=== PATIENT | male | born 1965 | race Caucasian/White ===

== ENCOUNTER 2018-01-21 11:21 | Day surgery (SDC) | payer BC ==
[2018-01-21] MEDS ORDERED: PROPOFOL 40 ML (14:00)
[2018-01-21] MEDS ORDERED: PROPOFOL 20 ML (14:46)
== END 2018-01-21 16:48 | disposition home or self-care (01) ==
LOC: GIL 11:21
DX: R19.4 Change in bowel habit (principal); K29.30 Chronic superficial gastritis without bleeding; K21.9 Gastro-esophageal reflux disease without esophagitis; K31.7 Polyp of stomach and duodenum; K64.8 Other hemorrhoids; I10 Essential (primary) hypertension; E78.5 Hyperlipidemia, unspecified
CPT/HCPCS: 43239; 88305; 88312

== ENCOUNTER 2018-04-19 06:05 | Day surgery (SDC) | payer BC ==
[~2018-04-19 06:05] MED LIST: AMPICILLIN/SULB 3 GM/NS (PMX) 100 ML IVPB; SOD CHLORIDE 0.9% 1,000 ML IV
[2018-04-19] MEDS ORDERED: PROPOFOL 20 ML ×2 (07:21→08:16)
[2018-04-19] MEDS ORDERED: PHENYLephrine (100 MCG/ML) 5ML SYG (07:22)
[2018-04-19] MEDS ORDERED: LIDOCAINE 2% (SDV) 5 ML INJ (07:22)
== END 2018-04-19 12:00 | disposition home or self-care (01) ==
LOC: GIL 06:05
DX: C16.9 Malignant neoplasm of stomach, unspecified (principal)
CPT/HCPCS: 43239; 88305; 88312

== ENCOUNTER 2018-04-22 08:33 | Inpatient (IN) | payer BC ==
[~2018-04-22 08:33] MED LIST changes: -AMPICILLIN/SULB 3 GM/NS (PMX) 100 ML IVPB; +CEFAZOLIN 1 GM INJ; +SUCCINYLCHOLINE CHLORIDE 100 MG/5 ML SYG IV
[2018-04-22 09:25] LABS: ADD MAN DIFF? NO
[2018-04-22 09:25] LABS: WHITE BLOOD COUNT 4.6 10^3/ul (4.8-10.8)
[2018-04-22 09:26] LABS: BASOPHILS % 0.4 % (0.0-2.0); EOSINOPHILS % 0.9 % (0.0-7.0); HEMOGLOBIN 8.2 g/dl (14.0-18.0); LYMPHOCYTES % 20.6 % (15.0-51.0); MEAN CORPUSCULAR HEMOGLOBIN 28.4 pg (29.0-33.0); MEAN CORPUSCULAR HGB CONC 32.8 g/dl (32.0-37.0); MEAN CORPUSCULAR VOLUME 86.5 fl (82.0-101.0); MEAN PLATELET VOLUME 11.7 fl (7.4-10.4); MONOCYTE # 0.3 10^3/ul (0.3-0.9); MONOCYTES % 6.7 % (0.0-11.0); NEUTROPHIL # 3.3 10^3/ul (1.6-7.5); NEUTROPHILS % 71.2 % (39.0-77.0); PLATELET COUNT 189 10^3/UL (140-415); RED BLOOD COUNT 2.89 10^6/ul (4.70-6.10); RED CELL DISTRIBUTION WIDTH 14.6 % (11.5-14.5)
[2018-04-22 09:45] LABS: INR 0.94; PROTIME 12.7 Sec (11.9-14.9)
[2018-04-22 09:46] LABS: PARTIAL THROMBOPLASTIN TIME 30.7 Sec (25.0-35.0)
[2018-04-22 09:47] LABS: HOLD TRANSMISSIONS 1
[2018-04-22 09:57] LABS: ALANINE AMINOTRANSFERASE 12 IU/L (13-69); ALBUMIN 2.8 g/dl (3.3-4.9); ALBUMIN/GLOBULIN RATIO 1.07; ALKALINE PHOSPHATASE 65 IU/L (42-121); ANION GAP 9 (8-16); ASPARTATE AMINO TRANSFERASE 19 IU/L (15-46); BILIRUBIN,INDIRECT 0.3 mg/dl (0-1.1); BILIRUBIN,TOTAL 0.3 mg/dl (0.2-1.3); BLOOD UREA NITROGEN 23 mg/dl (7-20); CALCIUM 8.4 mg/dl (8.4-10.2); CARBON DIOXIDE 26 mmol/L (21-31); CHLORIDE 109 mmol/L (97-110); CREATININE 2.78 mg/dl (0.61-1.24); GLUCOSE 97 mg/dl (70-220); POTASSIUM 3.8 mmol/L (3.5-5.1); SODIUM 140 mmol/L (135-144); TOTAL PROTEIN 5.4 g/dl (6.1-8.1)
[2018-04-22] MEDS ORDERED: MIDAZOLAM 1 MG/ML 2 ML INJ (11:25)
[2018-04-22] MEDS ORDERED: NEOSTIGMINE 3 MG/3 ML SYRINGE (11:25)
[2018-04-22] MEDS ORDERED: ROCURONIUM 50 MG INJ (11:25)
[2018-04-22] MEDS ORDERED: LIDOCAINE 2% (SDV) 5 ML INJ (11:25)
[2018-04-22] MEDS ORDERED: GLYCOPYRROLATE 0.4 MG INJ (11:25)
[2018-04-22] MEDS ORDERED: PROPOFOL 20 ML (11:25)
[2018-04-22] MEDS ORDERED: DEXAMETHASONE 4 MG/ML 1 ML INJ ×2 (11:26→11:28)
[2018-04-22] MEDS ORDERED: ONDANSETRON 4 MG INJ (11:26)
[2018-04-22] MEDS ORDERED: FENTAnyl 50 MCG/ML VIAL ×2 (11:26→15:24)
[2018-04-22 12:52] LABS: IMMEDIATE SPIN CROSSMATCH 1 2
[2018-04-22] MEDS ORDERED: FUROSEMIDE 20 MG INJ (14:05)
[2018-04-22] MEDS ORDERED: SUGAMMADEX SODIUM 200 MG/2 ML VIAL IV (15:01)
[2018-04-22] MEDS ORDERED: DIPHENHYDRAMINE 50 MG INJ (15:17)
[2018-04-22] MEDS ORDERED: HYDROmorphONE 0.2 MG/ML PCA (15:25)
[2018-04-22] MEDS ORDERED: HYDROmorphONE 1 MG/5 ML IV SYRINGE IV ×3 (15:25→15:30)
[2018-04-22] MEDS ORDERED: ALBUTEROL 0.083% (NEB) 2.5 MG/3 ML AMP HHN (15:30)
[2018-04-22] MEDS ORDERED: FENTAnyl 50 MCG/ML VIAL IV ×2 (15:30)
[2018-04-22] MEDS ORDERED: LABETALOL HCL 20MG INJ IV (15:30)
[2018-04-22] MEDS ORDERED: MEPERIDINE 25 MG INJ IV (15:30)
[2018-04-22] MEDS ORDERED: ONDANSETRON 4 MG INJ IV (15:30)
[2018-04-22] MEDS ORDERED: KETOROLAC 15 MG INJ IV (15:30)
[2018-04-22] MEDS ORDERED: MIDAZOLAM 1 MG/ML 2 ML INJ IV (15:30)
[2018-04-22] MEDS ORDERED: METOCLOPRAMIDE 10 MG INJ IV (15:30)
[2018-04-22] MEDS ORDERED: KETOROLAC 30 MG INJ IV (15:30)
[2018-04-22] MEDS: HYDROmorphONE 1 MG/5 ML IV SYRINGE IV (15:49)
[2018-04-22] MEDS: DIPHENHYDRAMINE 50 MG INJ IV (15:50)
[2018-04-22] MEDS: FENTAnyl 50 MCG/ML VIAL IV ×2 (15:50→16:04)
[2018-04-22] MEDS: HYDROmorphONE 0.2 MG/ML PCA IV (15:51)
[2018-04-22 15:59] LABS: HEMATOCRIT 31.3 % (42.0-52.0); HEMOGLOBIN 9.9 g/dl (14.0-18.0)
[2018-04-22] MEDS: D5W-0.45 NACL + KCL 20 MEQ 1,000 ML IV ×3 (17:06→23:27)
[2018-04-23] MEDS: PANTOPRAZOLE 40 MG INJ IV (05:41)
[2018-04-23] MEDS: D5W-0.45 NACL + KCL 20 MEQ 1,000 ML IV ×3 (05:41→19:37)
[2018-04-23] MEDS: HYDROmorphONE 0.2 MG/ML PCA IV (07:35)
[2018-04-23 10:48] LABS: ADD MAN DIFF? NO
[2018-04-23 10:53] LABS: WHITE BLOOD COUNT 11.5 10^3/ul (4.8-10.8)
[2018-04-23 10:53] LABS: BASOPHILS % 0.1 % (0.0-2.0); HEMATOCRIT 30.5 % (42.0-52.0); HEMOGLOBIN 9.8 g/dl (14.0-18.0); LYMPHOCYTES # 0.7 10^3/ul (0.8-2.9); LYMPHOCYTES % 6.2 % (15.0-51.0); MEAN CORPUSCULAR HEMOGLOBIN 28.4 pg (29.0-33.0); MEAN CORPUSCULAR HGB CONC 32.1 g/dl (32.0-37.0); MEAN CORPUSCULAR VOLUME 88.4 fl (82.0-101.0); MEAN PLATELET VOLUME 11.2 fl (7.4-10.4); MONOCYTE # 0.8 10^3/ul (0.3-0.9); MONOCYTES % 7.2 % (0.0-11.0); NEUTROPHIL # 9.9 10^3/ul (1.6-7.5); NEUTROPHILS % 86.1 % (39.0-77.0); PLATELET COUNT 239 10^3/UL (140-415); RED BLOOD COUNT 3.45 10^6/ul (4.70-6.10); RED CELL DISTRIBUTION WIDTH 14.8 % (11.5-14.5)
[2018-04-23 11:07] LABS: ANION GAP 8 (8-16); BLOOD UREA NITROGEN 25 mg/dl (7-20); CALCIUM 8.1 mg/dl (8.4-10.2); CARBON DIOXIDE 23 mmol/L (21-31); CHLORIDE 113 mmol/L (97-110); GLUCOSE 143 mg/dl (70-220); POTASSIUM 4.6 mmol/L (3.5-5.1); SODIUM 139 mmol/L (135-144)
[2018-04-23 14:18] LABS: INR 1.06; PROTIME 13.9 Sec (11.9-14.9); PT RATIO 1.1
[2018-04-23 14:19] LABS: PARTIAL THROMBOPLASTIN TIME 35.6 Sec (25.0-35.0)
[2018-04-23] MEDS: CLONIDINE 0.2 MG/24 HR PATCH TRANSDERM (14:40)
[2018-04-23] MEDS: hydrALAzine 20 MG INJ IV ×2 (14:41→19:41)
[2018-04-23 22:45] LABS: ADD MAN DIFF? NO
[2018-04-23 22:47] LABS: BASOPHILS % 0.1 % (0.0-2.0); HEMATOCRIT 30.6 % (42.0-52.0); HEMOGLOBIN 10.1 g/dl (14.0-18.0); IMMATURE GRANS #M 0.13 10^3/ul; IMMATURE GRANS % (M) 0.9 %; LYMPHOCYTES # 0.8 10^3/ul (0.8-2.9); LYMPHOCYTES % 5.7 % (15.0-51.0); MEAN CORPUSCULAR HEMOGLOBIN 28.9 pg (29.0-33.0); MEAN CORPUSCULAR VOLUME 87.4 fl (82.0-101.0); MEAN PLATELET VOLUME 11.4 fl (7.4-10.4); MONOCYTES % 6.6 % (0.0-11.0); NEUTROPHIL # 12.9 10^3/ul (1.6-7.5); NEUTROPHILS % 86.7 % (39.0-77.0); PLATELET COUNT 278 10^3/UL (140-415)
[2018-04-23 22:47] LABS: WHITE BLOOD COUNT 14.8 10^3/ul (4.8-10.8)
[2018-04-23] MEDS: LABETALOL HCL 20MG INJ IV (22:55)
[2018-04-23 23:07] LABS: CREATINE KINASE 377 IU/L (23-200)
[2018-04-23 23:08] LABS: LACTIC ACID 1.2 mmol/L (0.5-2.0); MAGNESIUM 2.2 mg/dl (1.7-2.5)
[2018-04-23 23:09] LABS: ALANINE AMINOTRANSFERASE 13 IU/L (13-69); ALBUMIN 2.8 g/dl (3.3-4.9); ALBUMIN/GLOBULIN RATIO 1.03; ALKALINE PHOSPHATASE 63 IU/L (42-121); ANION GAP 11 (8-16); ASPARTATE AMINO TRANSFERASE 28 IU/L (15-46); BILIRUBIN,INDIRECT 0.3 mg/dl (0-1.1); BILIRUBIN,TOTAL 0.3 mg/dl (0.2-1.3); BLOOD UREA NITROGEN 28 mg/dl (7-20); CALCIUM 8.4 mg/dl (8.4-10.2); CARBON DIOXIDE 19 mmol/L (21-31); CHLORIDE 113 mmol/L (97-110); CREATININE 3.62 mg/dl (0.61-1.24); GLUCOSE 160 mg/dl (70-220); POTASSIUM 4.3 mmol/L (3.5-5.1); SODIUM 139 mmol/L (135-144); TOTAL PROTEIN 5.5 g/dl (6.1-8.1)
[2018-04-23 23:20] LABS: CK INDEX 0.7; CK-MB 2.67 ng/ml (0.0-2.4); TROPONIN-I < 0.010 ng/ml (0.000-0.120)
[2018-04-23] MEDS: METOPROLOL 5 MG INJ IV (23:21)
[2018-04-24] MEDS: SOD CHLORIDE 0.9% 1,000 ML IV
[2018-04-24] MEDS: AMPICILLIN/SULB 3 GM/NS (PMX) 100 ML IVPB (00:55)
[2018-04-24] MEDS: D5W-0.45 NACL + KCL 20 MEQ 1,000 ML IV ×3 (06:02→23:55)
[2018-04-24] MEDS: PANTOPRAZOLE 40 MG INJ IV (06:02)
[2018-04-24 06:03] LABS: WHITE BLOOD COUNT 11.3 10^3/ul (4.8-10.8)
[2018-04-24 06:03] LABS: ADD MAN DIFF? NO; BASOPHILS % 0.3 % (0.0-2.0); EOSINOPHILS % 0.1 % (0.0-7.0); HEMATOCRIT 27.3 % (42.0-52.0); HEMOGLOBIN 8.7 g/dl (14.0-18.0); IMMATURE GRANS #M 0.06 10^3/ul; IMMATURE GRANS % (M) 0.5 %; LYMPHOCYTES # 0.7 10^3/ul (0.8-2.9); LYMPHOCYTES % 6.5 % (15.0-51.0); MEAN CORPUSCULAR HEMOGLOBIN 27.9 pg (29.0-33.0); MEAN CORPUSCULAR HGB CONC 31.9 g/dl (32.0-37.0); MEAN CORPUSCULAR VOLUME 87.5 fl (82.0-101.0); MEAN PLATELET VOLUME 11.6 fl (7.4-10.4); MONOCYTE # 0.8 10^3/ul (0.3-0.9); MONOCYTES % 7.4 % (0.0-11.0); NEUTROPHIL # 9.7 10^3/ul (1.6-7.5); NEUTROPHILS % 85.2 % (39.0-77.0); PLATELET COUNT 208 10^3/UL (140-415); RED BLOOD COUNT 3.12 10^6/ul (4.70-6.10); RED CELL DISTRIBUTION WIDTH 15.2 % (11.5-14.5)
[2018-04-24 06:28] LABS: CREATINE KINASE 289 IU/L (23-200)
[2018-04-24 06:30] LABS: LACTIC ACID 0.9 mmol/L (0.5-2.0)
[2018-04-24 06:32] LABS: INR 1.13; PROTIME 14.7 Sec (11.9-14.9); PT RATIO 1.1
[2018-04-24 06:33] LABS: PARTIAL THROMBOPLASTIN TIME 34.9 Sec (25.0-35.0)
[2018-04-24 06:34] LABS: ANION GAP 10 (8-16); BLOOD UREA NITROGEN 29 mg/dl (7-20); CARBON DIOXIDE 20 mmol/L (21-31); CHLORIDE 115 mmol/L (97-110); CREATININE 3.31 mg/dl (0.61-1.24); GLUCOSE 126 mg/dl (70-220); POTASSIUM 4.9 mmol/L (3.5-5.1); SODIUM 140 mmol/L (135-144)
[2018-04-24 06:35] LABS: CK INDEX 0.9; CK-MB 2.59 ng/ml (0.0-2.4); TROPONIN-I 0.021 ng/ml (0.000-0.120)
[2018-04-24] MEDS ORDERED: ALBUTEROL 0.083% (NEB) 2.5 MG/3 ML AMP HHN (11:30)
[2018-04-24 13:26] LABS: HAAIG REFLEX REFLEX FILED
[2018-04-24 13:32] LABS: PHOSPHORUS 5.1 mg/dl (2.5-4.9)
[2018-04-24 14:05] LABS: HEPATITIS B SURFACE ANTIGEN NEGATIVE (NEGATIVE)
[2018-04-24 14:22] LABS: HEPATITIS B CORE ANTIBODY NEGATIVE (NEGATIVE); HEPATITIS C VIRAL ANTIBODY NEGATIVE (NEGATIVE); HIV 1&2 ANTIBODY NEGATIVE (NEGATIVE)
[2018-04-24 15:48] LABS: OSMOLALITY,URINE 408 mOsm/kg (250-1200)
[2018-04-24 16:05] LABS: PROTEIN URINE > 600.0 mg/dl (0.0-11.9)
[2018-04-24] MEDS: hydrALAzine 20 MG INJ IV ×2 (17:31→21:36)
[2018-04-24] MEDS ORDERED: METOPROLOL 5 MG INJ (18:34)
[2018-04-24] MEDS: METOPROLOL 5 MG INJ IV (18:44)
[2018-04-24] MEDS: HYDROmorphONE 0.2 MG/ML PCA IV (22:47)
[2018-04-25] MEDS: PANTOPRAZOLE 40 MG INJ IV (06:00)
[2018-04-25] MEDS: D5W-0.45 NACL + KCL 20 MEQ 1,000 ML IV ×2 (09:56→18:50)
[2018-04-25 10:02] LABS: ADD MAN DIFF? NO
[2018-04-25 10:08] LABS: WHITE BLOOD COUNT 8.9 10^3/ul (4.8-10.8)
[2018-04-25 10:08] LABS: ABNORMAL IP MESSAGE 1; BASOPHILS % 0.1 % (0.0-2.0); EOSINOPHILS % 0.1 % (0.0-7.0); HEMATOCRIT 26.2 % (42.0-52.0); HEMOGLOBIN 8.2 g/dl (14.0-18.0); IMMATURE GRANS #M 0.05 10^3/ul; IMMATURE GRANS % (M) 0.6 %; LYMPHOCYTES # 0.5 10^3/ul (0.8-2.9); LYMPHOCYTES % 5.9 % (15.0-51.0); MEAN CORPUSCULAR HEMOGLOBIN 27.9 pg (29.0-33.0); MEAN CORPUSCULAR HGB CONC 31.3 g/dl (32.0-37.0); MEAN CORPUSCULAR VOLUME 89.1 fl (82.0-101.0); MEAN PLATELET VOLUME 11.4 fl (7.4-10.4); MONOCYTE # 0.7 10^3/ul (0.3-0.9); MONOCYTES % 7.7 % (0.0-11.0); NEUTROPHIL # 7.7 10^3/ul (1.6-7.5); NEUTROPHILS % 85.6 % (39.0-77.0); PLATELET COUNT 195 10^3/UL (140-415); POSITIVE DIFF @See below; RED BLOOD COUNT 2.94 10^6/ul (4.70-6.10)
[2018-04-25 10:29] LABS: ANION GAP 9 (8-16); BLOOD UREA NITROGEN 32 mg/dl (7-20); CALCIUM 8.2 mg/dl (8.4-10.2); CARBON DIOXIDE 21 mmol/L (21-31); CHLORIDE 115 mmol/L (97-110); CREATININE 3.56 mg/dl (0.61-1.24); GLUCOSE 117 mg/dl (70-220); INR 1.09; POTASSIUM 4.2 mmol/L (3.5-5.1); PROTIME 14.2 Sec (11.9-14.9); PT RATIO 1.1; SODIUM 141 mmol/L (135-144)
[2018-04-25 10:30] LABS: PARTIAL THROMBOPLASTIN TIME 36.5 Sec (25.0-35.0)
[2018-04-25] MEDS ORDERED: KETOROLAC 30 MG INJ IV (13:00)
[2018-04-25] MEDS: KETOROLAC 15 MG INJ IV ×2 (13:55→18:55)
[2018-04-25] MEDS: HYDROmorphONE 0.2 MG/ML PCA IV (22:29)
[2018-04-26] MEDS: KETOROLAC 15 MG INJ IV ×3 (01:02→12:44)
[2018-04-26] MEDS: D5W-0.45 NACL + KCL 20 MEQ 1,000 ML IV ×2 (02:27→10:17)
[2018-04-26] MEDS: PANTOPRAZOLE 40 MG INJ IV (05:56)
[2018-04-26 08:42] LABS: ADD MAN DIFF? NO
[2018-04-26 08:51] LABS: BASOPHILS % 0.1 % (0.0-2.0); EOSINOPHILS # 0.1 10^3/ul (0.0-0.5); EOSINOPHILS % 1.2 % (0.0-7.0); HEMOGLOBIN 7.1 g/dl (14.0-18.0); IMMATURE GRANS #M 0.04 10^3/ul; IMMATURE GRANS % (M) 0.5 %; LYMPHOCYTES # 0.6 10^3/ul (0.8-2.9); LYMPHOCYTES % 8.2 % (15.0-51.0); MEAN CORPUSCULAR HEMOGLOBIN 27.8 pg (29.0-33.0); MEAN CORPUSCULAR HGB CONC 30.9 g/dl (32.0-37.0); MEAN CORPUSCULAR VOLUME 90.2 fl (82.0-101.0); MEAN PLATELET VOLUME 11.4 fl (7.4-10.4); MONOCYTE # 0.8 10^3/ul (0.3-0.9); MONOCYTES % 10.9 % (0.0-11.0); NEUTROPHILS % 79.1 % (39.0-77.0); PLATELET COUNT 158 10^3/UL (140-415); RED BLOOD COUNT 2.55 10^6/ul (4.70-6.10); RED CELL DISTRIBUTION WIDTH 15.1 % (11.5-14.5)
[2018-04-26 08:51] LABS: WHITE BLOOD COUNT 7.6 10^3/ul (4.8-10.8)
[2018-04-26 09:06] LABS: INR 1.25; PROTIME 15.9 Sec (11.9-14.9); PT RATIO 1.2
[2018-04-26 09:07] LABS: PARTIAL THROMBOPLASTIN TIME 40.5 Sec (25.0-35.0)
[2018-04-26 09:12] LABS: ANION GAP 11 (8-16); BLOOD UREA NITROGEN 43 mg/dl (7-20); CALCIUM 8.1 mg/dl (8.4-10.2); CARBON DIOXIDE 19 mmol/L (21-31); CHLORIDE 116 mmol/L (97-110); CREATININE 5.32 mg/dl (0.61-1.24); GLUCOSE 108 mg/dl (70-220); POTASSIUM 4.7 mmol/L (3.5-5.1); SODIUM 141 mmol/L (135-144)
[2018-04-26] MEDS: LACTATED RINGER'S 500 ML IV (12:29)
[2018-04-26] MEDS: FUROSEMIDE 20 MG INJ IV (15:54)
[2018-04-26 16:18] LABS: IMMEDIATE SPIN CROSSMATCH 1 1
[2018-04-26] MEDS: SOD CHLORIDE 0.9% 1,000 ML IV (19:36)
[2018-04-26] MEDS: hydrALAzine 20 MG INJ IV (22:53)
[2018-04-27 00:53] LABS: ADD MAN DIFF? NO
[2018-04-27 00:55] LABS: WHITE BLOOD COUNT 7.3 10^3/ul (4.8-10.8)
[2018-04-27 00:55] LABS: BASOPHILS % 0.3 % (0.0-2.0); EOSINOPHILS # 0.2 10^3/ul (0.0-0.5); EOSINOPHILS % 2.5 % (0.0-7.0); HEMATOCRIT 23.9 % (42.0-52.0); HEMOGLOBIN 7.5 g/dl (14.0-18.0); IMMATURE GRANS #M 0.03 10^3/ul; IMMATURE GRANS % (M) 0.4 %; LYMPHOCYTES # 0.8 10^3/ul (0.8-2.9); LYMPHOCYTES % 10.6 % (15.0-51.0); MEAN CORPUSCULAR HEMOGLOBIN 28.2 pg (29.0-33.0); MEAN CORPUSCULAR HGB CONC 31.4 g/dl (32.0-37.0); MEAN CORPUSCULAR VOLUME 89.8 fl (82.0-101.0); MEAN PLATELET VOLUME 10.8 fl (7.4-10.4); MONOCYTE # 0.7 10^3/ul (0.3-0.9); MONOCYTES % 9.3 % (0.0-11.0); NEUTROPHIL # 5.6 10^3/ul (1.6-7.5); NEUTROPHILS % 76.9 % (39.0-77.0); PLATELET COUNT 165 10^3/UL (140-415); RED BLOOD COUNT 2.66 10^6/ul (4.70-6.10); RED CELL DISTRIBUTION WIDTH 14.6 % (11.5-14.5)
[2018-04-27 01:25] LABS: ANION GAP 10 (8-16); BLOOD UREA NITROGEN 50 mg/dl (7-20); CALCIUM 7.9 mg/dl (8.4-10.2); CARBON DIOXIDE 20 mmol/L (21-31); CHLORIDE 115 mmol/L (97-110); CREATININE 5.67 mg/dl (0.61-1.24); GLUCOSE 93 mg/dl (70-220); POTASSIUM 4.6 mmol/L (3.5-5.1); SODIUM 140 mmol/L (135-144)
[2018-04-27] MEDS: SOD CHLORIDE 0.9% 1,000 ML IV (04:36)
[2018-04-27 05:59] LABS: ADD MAN DIFF? NO
[2018-04-27 06:09] LABS: WHITE BLOOD COUNT 7.5 10^3/ul (4.8-10.8)
[2018-04-27 06:09] LABS: BASOPHILS % 0.3 % (0.0-2.0); EOSINOPHILS # 0.2 10^3/ul (0.0-0.5); EOSINOPHILS % 3.1 % (0.0-7.0); HEMATOCRIT 23.4 % (42.0-52.0); HEMOGLOBIN 7.5 g/dl (14.0-18.0); IMMATURE GRANS #M 0.03 10^3/ul; IMMATURE GRANS % (M) 0.4 %; LYMPHOCYTES # 0.7 10^3/ul (0.8-2.9); LYMPHOCYTES % 9.5 % (15.0-51.0); MEAN CORPUSCULAR HEMOGLOBIN 28.6 pg (29.0-33.0); MEAN CORPUSCULAR HGB CONC 32.1 g/dl (32.0-37.0); MEAN CORPUSCULAR VOLUME 89.3 fl (82.0-101.0); MEAN PLATELET VOLUME 11.7 fl (7.4-10.4); MONOCYTE # 0.7 10^3/ul (0.3-0.9); MONOCYTES % 9.9 % (0.0-11.0); NEUTROPHIL # 5.8 10^3/ul (1.6-7.5); NEUTROPHILS % 76.8 % (39.0-77.0); PLATELET COUNT 174 10^3/UL (140-415); RED BLOOD COUNT 2.62 10^6/ul (4.70-6.10); RED CELL DISTRIBUTION WIDTH 14.7 % (11.5-14.5)
[2018-04-27] MEDS: PANTOPRAZOLE 40 MG INJ IV (06:15)
[2018-04-27 06:50] LABS: ALANINE AMINOTRANSFERASE 20 IU/L (13-69); ALBUMIN 2.2 g/dl (3.3-4.9); ALBUMIN/GLOBULIN RATIO 0.91; ALKALINE PHOSPHATASE 72 IU/L (42-121); ANION GAP 10 (8-16); ASPARTATE AMINO TRANSFERASE 18 IU/L (15-46); BILIRUBIN,INDIRECT 0.3 mg/dl (0-1.1); BILIRUBIN,TOTAL 0.3 mg/dl (0.2-1.3); BLOOD UREA NITROGEN 51 mg/dl (7-20); CARBON DIOXIDE 19 mmol/L (21-31); CHLORIDE 117 mmol/L (97-110); CREATININE 5.68 mg/dl (0.61-1.24); GLUCOSE 88 mg/dl (70-220); POTASSIUM 4.2 mmol/L (3.5-5.1); SODIUM 142 mmol/L (135-144); TOTAL PROTEIN 4.6 g/dl (6.1-8.1)
[2018-04-27] MEDS: SOD CHLORIDE 0.45% 1,000 ML IV ×2 (09:37→13:00)
[2018-04-27 14:21] LABS: HEMATOCRIT 24.2 % (42.0-52.0); HEMOGLOBIN 7.5 g/dl (14.0-18.0)
[2018-04-27 23:25] LABS: HEMATOCRIT 24.6 % (42.0-52.0); HEMOGLOBIN 7.6 g/dl (14.0-18.0)
[2018-04-28] MEDS: SOD CHLORIDE 0.45% 1,000 ML IV ×4 (00:18→14:46)
[2018-04-28] MEDS: hydrALAzine 20 MG INJ IV (00:22)
[2018-04-28] MEDS: PANTOPRAZOLE 40 MG INJ IV (05:46)
[2018-04-28] MEDS: HYDROmorphONE 0.2 MG/ML PCA IV (05:46)
[2018-04-28 05:50] LABS: ADD MAN DIFF? NO
[2018-04-28 06:00] LABS: BASOPHILS % 0.4 % (0.0-2.0); EOSINOPHILS # 0.3 10^3/ul (0.0-0.5); EOSINOPHILS % 3.1 % (0.0-7.0); HEMATOCRIT 26.9 % (42.0-52.0); HEMOGLOBIN 8.4 g/dl (14.0-18.0); IMMATURE GRANS #M 0.03 10^3/ul; IMMATURE GRANS % (M) 0.4 %; LYMPHOCYTES # 0.9 10^3/ul (0.8-2.9); LYMPHOCYTES % 10.9 % (15.0-51.0); MEAN CORPUSCULAR HEMOGLOBIN 27.9 pg (29.0-33.0); MEAN CORPUSCULAR HGB CONC 31.2 g/dl (32.0-37.0); MEAN CORPUSCULAR VOLUME 89.4 fl (82.0-101.0); MEAN PLATELET VOLUME 11.4 fl (7.4-10.4); MONOCYTE # 0.7 10^3/ul (0.3-0.9); MONOCYTES % 7.9 % (0.0-11.0); NEUTROPHIL # 6.3 10^3/ul (1.6-7.5); NEUTROPHILS % 77.3 % (39.0-77.0); PLATELET COUNT 249 10^3/UL (140-415); RED BLOOD COUNT 3.01 10^6/ul (4.70-6.10); RED CELL DISTRIBUTION WIDTH 14.8 % (11.5-14.5)
[2018-04-28 06:00] LABS: WHITE BLOOD COUNT 8.2 10^3/ul (4.8-10.8)
[2018-04-28 06:14] LABS: ANION GAP 15 (8-16); BLOOD UREA NITROGEN 59 mg/dl (7-20); CALCIUM 8.4 mg/dl (8.4-10.2); CARBON DIOXIDE 17 mmol/L (21-31); CHLORIDE 116 mmol/L (97-110); CREATININE 5.08 mg/dl (0.61-1.24); GLUCOSE 77 mg/dl (70-220); SODIUM 144 mmol/L (135-144)
[2018-04-28 09:20] LABS: HEMATOCRIT 24.5 % (42.0-52.0); HEMOGLOBIN 7.8 g/dl (14.0-18.0)
[2018-04-29] MEDS: SOD CHLORIDE 0.45% 1,000 ML IV ×3 (00:08→13:26)
[2018-04-29] MEDS: hydrALAzine 20 MG INJ IV ×3 (00:37→23:37)
[2018-04-29 05:49] LABS: ADD MAN DIFF? NO
[2018-04-29 05:54] LABS: BASOPHILS % 0.4 % (0.0-2.0); EOSINOPHILS # 0.2 10^3/ul (0.0-0.5); EOSINOPHILS % 2.3 % (0.0-7.0); HEMATOCRIT 24.4 % (42.0-52.0); HEMOGLOBIN 7.8 g/dl (14.0-18.0); LYMPHOCYTES # 0.9 10^3/ul (0.8-2.9); LYMPHOCYTES % 13.1 % (15.0-51.0); MEAN CORPUSCULAR HEMOGLOBIN 28.1 pg (29.0-33.0); MEAN CORPUSCULAR VOLUME 87.8 fl (82.0-101.0); MEAN PLATELET VOLUME 11.2 fl (7.4-10.4); MONOCYTE # 0.5 10^3/ul (0.3-0.9); MONOCYTES % 7.3 % (0.0-11.0); NEUTROPHIL # 5.3 10^3/ul (1.6-7.5); NEUTROPHILS % 76.5 % (39.0-77.0); PLATELET COUNT 247 10^3/UL (140-415); RED BLOOD COUNT 2.78 10^6/ul (4.70-6.10); RED CELL DISTRIBUTION WIDTH 14.4 % (11.5-14.5)
[2018-04-29] MEDS: PANTOPRAZOLE 40 MG INJ IV (06:02)
[2018-04-29 06:14] LABS: ANION GAP 15 (8-16); BLOOD UREA NITROGEN 61 mg/dl (7-20); CALCIUM 8.1 mg/dl (8.4-10.2); CARBON DIOXIDE 16 mmol/L (21-31); CHLORIDE 117 mmol/L (97-110); CREATININE 4.44 mg/dl (0.61-1.24); GLUCOSE 73 mg/dl (70-220); POTASSIUM 4.1 mmol/L (3.5-5.1); SODIUM 144 mmol/L (135-144)
[2018-04-29] MEDS: DIATR MEGLU/DIATRIZOATE SODIUM 120 ML BTL ×2 (08:48→08:49)
[2018-04-30 06:19] LABS: ADD MAN DIFF? NO
[2018-04-30 06:39] LABS: WHITE BLOOD COUNT 7.8 10^3/ul (4.8-10.8)
[2018-04-30 06:39] LABS: BASOPHILS % 0.3 % (0.0-2.0); EOSINOPHILS # 0.2 10^3/ul (0.0-0.5); HEMATOCRIT 25.1 % (42.0-52.0); HEMOGLOBIN 7.9 g/dl (14.0-18.0); LYMPHOCYTES # 0.9 10^3/ul (0.8-2.9); LYMPHOCYTES % 11.5 % (15.0-51.0); MEAN CORPUSCULAR HEMOGLOBIN 27.8 pg (29.0-33.0); MEAN CORPUSCULAR HGB CONC 31.5 g/dl (32.0-37.0); MEAN CORPUSCULAR VOLUME 88.4 fl (82.0-101.0); MEAN PLATELET VOLUME 11.1 fl (7.4-10.4); MONOCYTE # 0.6 10^3/ul (0.3-0.9); MONOCYTES % 7.6 % (0.0-11.0); NEUTROPHIL # 6.1 10^3/ul (1.6-7.5); NEUTROPHILS % 78.1 % (39.0-77.0); PLATELET COUNT 286 10^3/UL (140-415); RED BLOOD COUNT 2.84 10^6/ul (4.70-6.10); RED CELL DISTRIBUTION WIDTH 14.5 % (11.5-14.5)
[2018-04-30] MEDS: HYDROmorphONE 0.2 MG/ML PCA IV (06:39)
[2018-04-30] MEDS: PANTOPRAZOLE 40 MG INJ IV (06:47)
[2018-04-30 07:03] LABS: ANION GAP 14 (8-16); BLOOD UREA NITROGEN 56 mg/dl (7-20); CALCIUM 8.1 mg/dl (8.4-10.2); CARBON DIOXIDE 18 mmol/L (21-31); CHLORIDE 117 mmol/L (97-110); CREATININE 4.33 mg/dl (0.61-1.24); GLUCOSE 97 mg/dl (70-220); POTASSIUM 3.7 mmol/L (3.5-5.1); SODIUM 145 mmol/L (135-144)
[2018-04-30] MEDS: SOD CHLORIDE 0.45% 1,000 ML IV (08:59)
[2018-04-30] MEDS: ALBUMIN HUMAN 25% 100 ML IV ×2 (12:11→19:53)
[2018-04-30] MEDS: FUROSEMIDE 20 MG INJ IV (14:35)
[2018-04-30] MEDS: CLONIDINE 0.2 MG/24 HR PATCH TRANSDERM ×2 (14:36→16:30)
[2018-05-01] MEDS: ALBUMIN HUMAN 25% 100 ML IV (05:54)
[2018-05-01] MEDS: PANTOPRAZOLE 40 MG INJ IV (05:54)
[2018-05-01 06:00] LABS: ADD MAN DIFF? NO
[2018-05-01 06:06] LABS: WHITE BLOOD COUNT 6.1 10^3/ul (4.8-10.8)
[2018-05-01 06:06] LABS: HEMATOCRIT 21.9 % (42.0-52.0); RED BLOOD COUNT 2.52 10^6/ul (4.70-6.10)
[2018-05-01 06:07] LABS: BASOPHILS % 0.5 % (0.0-2.0); EOSINOPHILS # 0.2 10^3/ul (0.0-0.5); EOSINOPHILS % 3.8 % (0.0-7.0); LYMPHOCYTES % 16.3 % (15.0-51.0); MEAN CORPUSCULAR HEMOGLOBIN 27.8 pg (29.0-33.0); MEAN CORPUSCULAR VOLUME 86.9 fl (82.0-101.0); MEAN PLATELET VOLUME 11.2 fl (7.4-10.4); MONOCYTE # 0.5 10^3/ul (0.3-0.9); MONOCYTES % 7.3 % (0.0-11.0); NEUTROPHIL # 4.4 10^3/ul (1.6-7.5); NEUTROPHILS % 71.4 % (39.0-77.0); PLATELET COUNT 227 10^3/UL (140-415); RED CELL DISTRIBUTION WIDTH 14.2 % (11.5-14.5)
[2018-05-01 06:21] LABS: ALANINE AMINOTRANSFERASE 16 IU/L (13-69); ALBUMIN 2.6 g/dl (3.3-4.9); ALBUMIN/GLOBULIN RATIO 1.04; ALKALINE PHOSPHATASE 59 IU/L (42-121); ANION GAP 13 (8-16); ASPARTATE AMINO TRANSFERASE 16 IU/L (15-46); BILIRUBIN,INDIRECT 0.1 mg/dl (0-1.1); BILIRUBIN,TOTAL 0.1 mg/dl (0.2-1.3); BLOOD UREA NITROGEN 45 mg/dl (7-20); CALCIUM 8.3 mg/dl (8.4-10.2); CARBON DIOXIDE 18 mmol/L (21-31); CHLORIDE 116 mmol/L (97-110); CREATININE 3.92 mg/dl (0.61-1.24); GLUCOSE 95 mg/dl (70-220); INR 1.11; POTASSIUM 3.4 mmol/L (3.5-5.1); PROTIME 14.5 Sec (11.9-14.9); PT RATIO 1.1; SODIUM 144 mmol/L (135-144); TOTAL PROTEIN 5.1 g/dl (6.1-8.1)
[2018-05-01 06:22] LABS: PARTIAL THROMBOPLASTIN TIME 35.3 Sec (25.0-35.0)
[2018-05-01 12:13] LABS: ADD MAN DIFF? NO
[2018-05-01 12:18] LABS: WHITE BLOOD COUNT 6.6 10^3/ul (4.8-10.8)
[2018-05-01 12:18] LABS: BASOPHILS % 0.5 % (0.0-2.0); EOSINOPHILS # 0.2 10^3/ul (0.0-0.5); EOSINOPHILS % 3.5 % (0.0-7.0); HEMATOCRIT 23.3 % (42.0-52.0); HEMOGLOBIN 7.6 g/dl (14.0-18.0); LYMPHOCYTES # 0.9 10^3/ul (0.8-2.9); LYMPHOCYTES % 13.1 % (15.0-51.0); MEAN CORPUSCULAR HEMOGLOBIN 28.7 pg (29.0-33.0); MEAN CORPUSCULAR HGB CONC 32.6 g/dl (32.0-37.0); MEAN CORPUSCULAR VOLUME 87.9 fl (82.0-101.0); MEAN PLATELET VOLUME 11.3 fl (7.4-10.4); MONOCYTE # 0.5 10^3/ul (0.3-0.9); MONOCYTES % 7.1 % (0.0-11.0); NEUTROPHILS % 75.2 % (39.0-77.0); PLATELET COUNT 238 10^3/UL (140-415); RED BLOOD COUNT 2.65 10^6/ul (4.70-6.10); RED CELL DISTRIBUTION WIDTH 13.9 % (11.5-14.5)
[2018-05-01] MEDS: HYDROmorphONE 0.2 MG/ML PCA IV (12:30)
[2018-05-01] MEDS: POTASSIUM CHLORIDE 100 ML IVPB (12:58)
[2018-05-02] MEDS: PANTOPRAZOLE 40 MG INJ IV ×2 (05:34→06:10)
[2018-05-02 05:50] LABS: ADD MAN DIFF? NO
[2018-05-02 05:58] LABS: WHITE BLOOD COUNT 5.6 10^3/ul (4.8-10.8)
[2018-05-02 05:58] LABS: BASOPHILS % 0.4 % (0.0-2.0); EOSINOPHILS # 0.2 10^3/ul (0.0-0.5); EOSINOPHILS % 2.7 % (0.0-7.0); HEMATOCRIT 22.7 % (42.0-52.0); HEMOGLOBIN 7.2 g/dl (14.0-18.0); LYMPHOCYTES # 0.7 10^3/ul (0.8-2.9); LYMPHOCYTES % 13.3 % (15.0-51.0); MEAN CORPUSCULAR HGB CONC 31.7 g/dl (32.0-37.0); MEAN CORPUSCULAR VOLUME 88.3 fl (82.0-101.0); MEAN PLATELET VOLUME 11.5 fl (7.4-10.4); MONOCYTE # 0.3 10^3/ul (0.3-0.9); MONOCYTES % 5.9 % (0.0-11.0); NEUTROPHIL # 4.3 10^3/ul (1.6-7.5); NEUTROPHILS % 77.3 % (39.0-77.0); PLATELET COUNT 219 10^3/UL (140-415); RED BLOOD COUNT 2.57 10^6/ul (4.70-6.10)
[2018-05-02] MEDS: PE/SHARK OIL/MO/PETROL 30 GM OINT PR ×2 (12:24→20:23)
[2018-05-02] MEDS: HYDROmorphONE 0.5 MG/0.5 ML SYG IV (17:27)
[2018-05-02] MEDS: FERROUS SULFATE (EC) 325 MG TAB PO (20:22)
[2018-05-02] MEDS: ATORVASTATIN 40 MG TAB PO (20:22)
[2018-05-03 05:43] LABS: ADD MAN DIFF? NO
[2018-05-03] MEDS: ACETAMINOPHEN 325 MG TAB PO ×2 (05:45→18:58)
[2018-05-03 05:51] LABS: BASOPHILS % 0.5 % (0.0-2.0); EOSINOPHILS # 0.2 10^3/ul (0.0-0.5); EOSINOPHILS % 2.8 % (0.0-7.0); HEMATOCRIT 22.3 % (42.0-52.0); HEMOGLOBIN 7.3 g/dl (14.0-18.0); LYMPHOCYTES # 1.1 10^3/ul (0.8-2.9); LYMPHOCYTES % 17.2 % (15.0-51.0); MEAN CORPUSCULAR HEMOGLOBIN 28.2 pg (29.0-33.0); MEAN CORPUSCULAR HGB CONC 32.7 g/dl (32.0-37.0); MEAN CORPUSCULAR VOLUME 86.1 fl (82.0-101.0); MEAN PLATELET VOLUME 11.5 fl (7.4-10.4); MONOCYTE # 0.4 10^3/ul (0.3-0.9); MONOCYTES % 6.5 % (0.0-11.0); NEUTROPHIL # 4.6 10^3/ul (1.6-7.5); NEUTROPHILS % 72.5 % (39.0-77.0); PLATELET COUNT 231 10^3/UL (140-415); RED BLOOD COUNT 2.59 10^6/ul (4.70-6.10); RED CELL DISTRIBUTION WIDTH 13.9 % (11.5-14.5)
[2018-05-03 05:51] LABS: WHITE BLOOD COUNT 6.4 10^3/ul (4.8-10.8)
[2018-05-03 06:23] LABS: ALANINE AMINOTRANSFERASE 25 IU/L (13-69); ALBUMIN 2.3 g/dl (3.3-4.9); ALBUMIN/GLOBULIN RATIO 0.95; ALKALINE PHOSPHATASE 68 IU/L (42-121); ANION GAP 9 (8-16); ASPARTATE AMINO TRANSFERASE 19 IU/L (15-46); BILIRUBIN,INDIRECT 0.1 mg/dl (0-1.1); BILIRUBIN,TOTAL 0.1 mg/dl (0.2-1.3); BLOOD UREA NITROGEN 30 mg/dl (7-20); CALCIUM 8.1 mg/dl (8.4-10.2); CARBON DIOXIDE 21 mmol/L (21-31); CHLORIDE 116 mmol/L (97-110); CREATININE 3.76 mg/dl (0.61-1.24); GLUCOSE 96 mg/dl (70-220); POTASSIUM 3.1 mmol/L (3.5-5.1); SODIUM 143 mmol/L (135-144); TOTAL PROTEIN 4.7 g/dl (6.1-8.1)
[2018-05-03] MEDS: FERROUS SULFATE (EC) 325 MG TAB PO ×2 (08:31→20:22)
[2018-05-03] MEDS: PE/SHARK OIL/MO/PETROL 30 GM OINT PR ×2 (08:35→20:20)
[2018-05-03] MEDS: FUROSEMIDE 20 MG INJ IV (12:00)
[2018-05-03] MEDS: ALBUMIN HUMAN 25% 100 ML IV ×2 (12:01→20:18)
[2018-05-03] MEDS: POTASSIUM CHLORIDE 100 ML IVPB (14:06)
[2018-05-03] MEDS: HYDROmorphONE 2 MG TAB PO ×2 (16:11→20:26)
[2018-05-03 16:36] LABS: OCCULT BLOOD STOOL NEGATIVE (NEGATIVE)
[2018-05-03] MEDS: ATORVASTATIN 40 MG TAB PO (20:22)
[2018-05-04] MEDS: ACETAMINOPHEN 325 MG TAB PO ×4 (00:52→20:40)
[2018-05-04] MEDS: ALBUMIN HUMAN 25% 100 ML IV (03:30)
[2018-05-04] MEDS: PANTOPRAZOLE 40 MG INJ IV (06:00)
[2018-05-04 06:18] LABS: ADD MAN DIFF? NO
[2018-05-04 06:24] LABS: WHITE BLOOD COUNT 6.7 10^3/ul (4.8-10.8)
[2018-05-04 06:24] LABS: BASOPHILS % 0.3 % (0.0-2.0); EOSINOPHILS # 0.1 10^3/ul (0.0-0.5); EOSINOPHILS % 1.9 % (0.0-7.0); HEMOGLOBIN 7.1 g/dl (14.0-18.0); LYMPHOCYTES # 0.9 10^3/ul (0.8-2.9); LYMPHOCYTES % 14.1 % (15.0-51.0); MEAN CORPUSCULAR HEMOGLOBIN 27.8 pg (29.0-33.0); MEAN CORPUSCULAR HGB CONC 32.3 g/dl (32.0-37.0); MEAN CORPUSCULAR VOLUME 86.3 fl (82.0-101.0); MEAN PLATELET VOLUME 11.9 fl (7.4-10.4); MONOCYTE # 0.4 10^3/ul (0.3-0.9); MONOCYTES % 5.5 % (0.0-11.0); NEUTROPHIL # 5.2 10^3/ul (1.6-7.5); NEUTROPHILS % 77.8 % (39.0-77.0); PLATELET COUNT 226 10^3/UL (140-415); RED BLOOD COUNT 2.55 10^6/ul (4.70-6.10)
[2018-05-04 07:03] LABS: ANION GAP 11 (8-16); BLOOD UREA NITROGEN 24 mg/dl (7-20); CALCIUM 8.3 mg/dl (8.4-10.2); CARBON DIOXIDE 21 mmol/L (21-31); CHLORIDE 115 mmol/L (97-110); CREATININE 3.58 mg/dl (0.61-1.24); GLUCOSE 90 mg/dl (70-220); SODIUM 144 mmol/L (135-144)
[2018-05-04] MEDS: PE/SHARK OIL/MO/PETROL 30 GM OINT PR ×2 (09:23→20:40)
[2018-05-04] MEDS: FERROUS SULFATE (EC) 325 MG TAB PO ×2 (09:23→20:40)
[2018-05-04] MEDS: FUROSEMIDE 20 MG INJ IV (11:51)
[2018-05-04] MEDS: POTASSIUM CHLORIDE 100 ML IVPB (11:51)
[2018-05-04 15:20] LABS: IMMEDIATE SPIN CROSSMATCH 1 1
[2018-05-04] MEDS: ATORVASTATIN 40 MG TAB PO (20:40)
[2018-05-05 05:39] LABS: ADD MAN DIFF? NO
[2018-05-05 05:40] LABS: BASOPHILS % 0.4 % (0.0-2.0); EOSINOPHILS # 0.1 10^3/ul (0.0-0.5); EOSINOPHILS % 1.2 % (0.0-7.0); HEMATOCRIT 25.4 % (42.0-52.0); HEMOGLOBIN 8.3 g/dl (14.0-18.0); LYMPHOCYTES # 0.8 10^3/ul (0.8-2.9); LYMPHOCYTES % 8.9 % (15.0-51.0); MEAN CORPUSCULAR HEMOGLOBIN 28.1 pg (29.0-33.0); MEAN CORPUSCULAR HGB CONC 32.7 g/dl (32.0-37.0); MEAN CORPUSCULAR VOLUME 86.1 fl (82.0-101.0); MEAN PLATELET VOLUME 11.6 fl (7.4-10.4); MONOCYTE # 0.4 10^3/ul (0.3-0.9); MONOCYTES % 4.8 % (0.0-11.0); NEUTROPHIL # 7.6 10^3/ul (1.6-7.5); NEUTROPHILS % 84.4 % (39.0-77.0); PLATELET COUNT 263 10^3/UL (140-415); RED BLOOD COUNT 2.95 10^6/ul (4.70-6.10); RED CELL DISTRIBUTION WIDTH 14.2 % (11.5-14.5)
[2018-05-05] MEDS: PANTOPRAZOLE (EC) 40 MG TAB PO (06:16)
[2018-05-05 06:22] LABS: ANION GAP 10 (8-16); BLOOD UREA NITROGEN 23 mg/dl (7-20); CALCIUM 8.2 mg/dl (8.4-10.2); CARBON DIOXIDE 22 mmol/L (21-31); CHLORIDE 116 mmol/L (97-110); CREATININE 3.47 mg/dl (0.61-1.24); GLUCOSE 102 mg/dl (70-220); SODIUM 145 mmol/L (135-144)
[2018-05-05] MEDS: FERROUS SULFATE (EC) 325 MG TAB PO ×2 (08:07→21:15)
[2018-05-05] MEDS: PE/SHARK OIL/MO/PETROL 30 GM OINT PR ×2 (08:08→21:00)
[2018-05-05] MEDS: POTASSIUM CHLORIDE (SR) 20 MEQ TAB PO (12:50)
[2018-05-05] MEDS: ACETAMINOPHEN 325 MG TAB PO (16:45)
[2018-05-05] MEDS: METOLAZONE 5 MG TAB PO (17:28)
[2018-05-05] MEDS: ATORVASTATIN 40 MG TAB PO (21:15)
[2018-05-06 05:43] LABS: ADD MAN DIFF? NO
[2018-05-06 05:47] LABS: BASOPHIL # 0.1 10^3/ul (0.0-0.1); BASOPHILS % 0.4 % (0.0-2.0); EOSINOPHILS # 0.1 10^3/ul (0.0-0.5); EOSINOPHILS % 0.9 % (0.0-7.0); HEMATOCRIT 25.7 % (42.0-52.0); HEMOGLOBIN 8.5 g/dl (14.0-18.0); LYMPHOCYTES % 7.9 % (15.0-51.0); MEAN CORPUSCULAR HEMOGLOBIN 28.7 pg (29.0-33.0); MEAN CORPUSCULAR HGB CONC 33.1 g/dl (32.0-37.0); MEAN CORPUSCULAR VOLUME 86.8 fl (82.0-101.0); MEAN PLATELET VOLUME 11.3 fl (7.4-10.4); MONOCYTE # 0.6 10^3/ul (0.3-0.9); MONOCYTES % 4.3 % (0.0-11.0); NEUTROPHIL # 10.9 10^3/ul (1.6-7.5); PLATELET COUNT 272 10^3/UL (140-415); RED BLOOD COUNT 2.96 10^6/ul (4.70-6.10); RED CELL DISTRIBUTION WIDTH 14.3 % (11.5-14.5)
[2018-05-06 05:47] LABS: WHITE BLOOD COUNT 12.7 10^3/ul (4.8-10.8)
[2018-05-06 06:08] LABS: INR 1.08; PROTIME 14.1 Sec (11.9-14.9); PT RATIO 1.1
[2018-05-06 06:09] LABS: PARTIAL THROMBOPLASTIN TIME 37.2 Sec (25.0-35.0)
[2018-05-06 06:12] LABS: ALANINE AMINOTRANSFERASE 20 IU/L (13-69); ALBUMIN 2.3 g/dl (3.3-4.9); ALBUMIN/GLOBULIN RATIO 0.92; ALKALINE PHOSPHATASE 66 IU/L (42-121); ANION GAP 9 (8-16); ASPARTATE AMINO TRANSFERASE 19 IU/L (15-46); BILIRUBIN,INDIRECT 0.2 mg/dl (0-1.1); BILIRUBIN,TOTAL 0.2 mg/dl (0.2-1.3); BLOOD UREA NITROGEN 19 mg/dl (7-20); CALCIUM 8.2 mg/dl (8.4-10.2); CARBON DIOXIDE 22 mmol/L (21-31); CHLORIDE 115 mmol/L (97-110); CREATININE 3.54 mg/dl (0.61-1.24); GLUCOSE 95 mg/dl (70-220); POTASSIUM 3.1 mmol/L (3.5-5.1); SODIUM 143 mmol/L (135-144); TOTAL PROTEIN 4.8 g/dl (6.1-8.1)
[2018-05-06 06:22] LABS: MAGNESIUM 1.6 mg/dl (1.7-2.5)
[2018-05-06] MEDS: PANTOPRAZOLE (EC) 40 MG TAB PO (06:28)
[2018-05-06] MEDS: METOLAZONE 5 MG TAB PO (08:27)
[2018-05-06] MEDS: FERROUS SULFATE (EC) 325 MG TAB PO (08:27)
[2018-05-06] MEDS: PE/SHARK OIL/MO/PETROL 30 GM OINT PR (08:28)
[2018-05-06] MEDS: POTASSIUM CHLORIDE (SR) 20 MEQ TAB PO (10:52)
[2018-05-06] MEDS: MAGNESIUM SULFATE 1 GM/D5W 100 ML IVPB (11:53)
[2018-05-06] MEDS: ACETAMINOPHEN 325 MG TAB PO (12:38)
[2018-05-06] MEDS ORDERED: PE/SHARK OIL/MO/PETROL 30 GM OINT PR (20:00)
== END 2018-05-06 18:33 | disposition home or self-care (01) | DRG 326 ==
LOC: REC 08:33 → 6WM 04-23 22:49 → PP2 16:28
PROC: 0DB60ZZ Excision of Stomach, Open Approach (ICD-10-PCS; principal; 2018-04-22 10:30)
PROC: 0WQF0ZZ Repair Abdominal Wall, Open Approach (ICD-10-PCS; 2018-04-22 10:30)
PROC: 0D160ZA Bypass Stomach to Jejunum, Open Approach (ICD-10-PCS; 2018-04-22 10:30)
PROC: 0DBU0ZZ Excision of Omentum, Open Approach (ICD-10-PCS; 2018-04-22 10:30)
PROC: 0WPF0JZ Removal of Synthetic Substitute from Abdominal Wall, Open Approach (ICD-10-PCS; 2018-04-22 10:30)
PROC: 30233N1 Transfusion of Nonautologous Red Blood Cells into Peripheral Vein, Percutaneous Approach (ICD-10-PCS; 2018-04-22 12:30)
DX: C16.5 Malignant neoplasm of lesser curvature of stomach, unspecified (principal); N17.0 Acute kidney failure with tubular necrosis; E87.2 Acidosis; D62 Acute posthemorrhagic anemia; N99.0 Postprocedural (acute) (chronic) kidney failure; D17.71 Benign lipomatous neoplasm of kidney; D63.1 Anemia in chronic kidney disease; E78.5 Hyperlipidemia, unspecified; I12.9 Hypertensive chronic kidney disease with stage 1 through stage 4 chronic kidney disease, or unspecified chronic kidney disease; N18.9 Chronic kidney disease, unspecified; K21.9 Gastro-esophageal reflux disease without esophagitis; K64.9 Unspecified hemorrhoids; R00.0 Tachycardia, unspecified; R60.0 Localized edema
CPT/HCPCS: 36430; 70450; 71045; 74018; 74240; 74250; 76775; 80048; 80053; 81003; 82270; 82550; 82553; 82962; 83605; 83735; 83935; 84100; 84443; 84484; 85014; 85018; 85025; 85610; 85730; 86703; 86704; 86709; 86803; 86850; 86900; 86901; 86920; 87086; 87340; 88305; 88331; 93005; 93970

== ENCOUNTER 2019-05-18 17:59 | Emergency (ER) | payer BC ==
[2019-05-18 18:51] LABS: WHITE BLOOD COUNT 3.9 10^3/ul (4.8-10.8)
[2019-05-18 18:51] LABS: ABNORMAL IP MESSAGE 1; MEAN CORPUSCULAR HEMOGLOBIN 38.1 pg (29.0-33.0); MEAN CORPUSCULAR HGB CONC 33.7 g/dl (32.0-37.0); MEAN CORPUSCULAR VOLUME 113.1 fl (82.0-101.0); MEAN PLATELET VOLUME 11.4 fl (7.4-10.4); PLATELET COUNT 69 10^3/UL (140-415); POSITIVE DIFF @See below; RED BLOOD COUNT 1.68 10^6/ul (4.70-6.10); RED CELL DISTRIBUTION WIDTH 19.2 % (11.5-14.5)
[2019-05-18 18:56] LABS: HEMOGLOBIN 6.4 g/dl (14.0-18.0)
[2019-05-18 18:57] LABS: ADD MAN DIFF? YES; PATH REVIEW? YES
[2019-05-18 19:10] LABS: INR 0.95; PARTIAL THROMBOPLASTIN TIME 33.4 Sec (23.0-35.0); PROTIME 12.8 Sec (11.9-14.9)
[2019-05-18] MEDS ORDERED: SOD CHLORIDE 0.9% 0 ML IV (19:15)
[2019-05-18 19:19] LABS: ANION GAP 6 (5-13); BLOOD UREA NITROGEN 27 mg/dl (7-20); CALCIUM 8.3 mg/dl (8.4-10.2); CARBON DIOXIDE 22 mmol/L (21-31); CHLORIDE 109 mmol/L (97-110); CREATININE 2.63 mg/dl (0.61-1.24); Estimated GFR 26 mL/min (>60); GLUCOSE 98 mg/dl (70-220); POTASSIUM 3.6 mmol/L (3.5-5.1); SODIUM 137 mmol/L (135-144)
[2019-05-18 21:45] LABS: ANISOCYTOSIS 2+ (0-0); BASOPHILS % (M) 1 % (0-2); EOSINOPHILS % (M) 5 % (0-7); LYMPHOCYTES #M 0.3 10^3/ul (0.8-2.9); LYMPHOCYTES % (M) 10 % (15-51); MONOCYTE #M 0.3 10^3/ul (0.3-0.9); MONOCYTES % (M) 8 % (0-11); POLYCHROMASIA 1+ (0-0); SEGMENTED NEUTROPHILS (M) % 77 % (39-77); SMUDGE%M 16 % (0-0)
[2019-05-19 00:06] LABS: IMMEDIATE SPIN CROSSMATCH 1 2
== END 2019-05-19 02:45 | disposition home or self-care (01) ==
LOC: E/R 05-19 02:45
PROVIDERS: Pediatrics Neonatal-Perinatal Medicine
DX: D61.818 Other pancytopenia (principal); D59.1 Other autoimmune hemolytic anemias; N18.9 Chronic kidney disease, unspecified; C16.9 Malignant neoplasm of stomach, unspecified
CPT/HCPCS: 36415; 36430; 80048; 85025; 85610; 85730; 86644; 86850; 86900; 86901; 86920; 86945; 99285-25